=== PATIENT | female | born 1950 | race Caucasian/White ===

== ENCOUNTER 2018-09-23 10:25 | Day surgery (SDC) | payer OTHER ==
[~2018-09-23 10:25] MED LIST: CHONDR SU A NA/HYALUR INTRAOC KIT (SURGICARE) ONE; EPINEPHRINE INJ/PF 1 MG/1 ML AMPULE ONE; KETOROLAC TROMETHAMINE 0.45% 4 DROP/0.4 ML DROPERETTE OS PRN; LIDOCAINE 1%/PHENYLEPHRINE 1.5% 1 ML VIAL ONE
[2018-09-23] MEDS: TETRACAINE HCL 0.5% OPH SOLN 4 ML OS PRN ×3 (10:57→11:26)
[2018-09-23] MEDS: TROPICAMIDE 1% OPH SOLN 3 ML OS PRN ×3 (10:58→11:19)
[2018-09-23] MEDS: CYCLOPENTOLATE 0.2%/PHENYLEPHRINE 1% OPH SOLN 2 ML OS PRN ×3 (10:58→11:19)
[2018-09-23] MEDS ORDERED: LIDOCAINE 2% INJ-PF (20 MG/ML) 10 ML AMPUL ONE (11:32)
[2018-09-23] MEDS ORDERED: MIDAZOLAM 2 MG/2 ML INJ ONE (11:32)
[2018-09-23] MEDS: TOBRAMYCIN SULFATE/DEXAMETH OPH SUSP 2.5 ML ONE ×2 (11:51)
[2018-09-23] MEDS: DORZOLAMIDE HCL 2%/TIMOLOL MALEAT 0.5% OPH SOLN 10 ML OS PRN ×2 (11:51)
--- NOTE | 2018-09-23 21:45 | [facility] OPERATIVE REPORT E ---
[facility] Operative Report NAME: ANNIE SEGOVIA AGE: 68Y DATE OF SURGERY: 09/23/2018 ROOM: PREOPERATIVE DIAGNOSIS: CATARACT, LEFT EYE. POSTOPERATIVE DIAGNOSIS: CATARACT, LEFT EYE. OPERATION: Cataract extraction with insertion of an IOL of the left eye. SURGEON: OKSANA LINDO M.D. ANESTHESIA: Topical. PROCEDURE: After obtaining appropriate consent, the patient's left eye was prepped and draped in sterile fashion as well as the surgeon in a sterile manner and cataract surgery was started. First a paracentesis blade was used to make a side-port incision. Viscoelastic was used to inflate the anterior chamber. Next a 2.4 mm incision was made with a 2.4 mm blade, clear corneal temporally. A continuous capsulorrhexis was made using a cystotome and Utrata forceps. Following this hydrodissection was carried out to make the lens fully loose and mobile and it was rotated 90 degrees. Following this, a tqascn-otn-tumzbdm technique was used to phacoemulsify the lens with a CDE of 8.64. The remaining cortex was removed with irrigation/aspiration. Provisc was instilled into the capsular bag to inflate the bag. A SN60WF, 21.0 diopter lens was placed. The remaining viscoelastic material was removed with irrigation/aspiration. Following this, the incision was found to be watertight. Besivance was instilled into the eye and a protective shield was placed over the eye. The patient returned to the postoperative recovery in stable condition. DICTATING PHYSICIAN: OKSANA LINDO M.D. [id number] [id number] PHY#: [id number] ID: [id number] JOB#: [id number] ACCT: [id number] cc:OKSANA LINDO M.D. >
--- NOTE | 2018-09-23 21:50 | [facility] DISCHARGE SUMMARY E ---
[facility] Discharge Summary NAME: ANNIE SEGOVIA AGE: 68Y ADMITTED: 09/23/2018 DISCHARGED: 09/23/2018 HOSPITAL COURSE: This is a 68-year-old female who underwent cataract extraction of the left eye. DIAGNOSIS: CATARACT, LEFT EYE. She underwent surgery because she was having trouble seeing the road signs and television. DISCHARGE INSTRUCTIONS: She should be on a regular diet. No bending at her waist, no heavy lifting. She should use her Polytrim, Prolensa, and Durezol at 3 p.m. and 8 p.m. and sleep with a rigid shield. I will see her for her 1 day postoperative tomorrow. DICTATING PHYSICIAN: OKSANA LINDO M.D. [id number] [id number] Y#: [id number] ID: [id number] JOB#: [id number] ACCT: [id number] cc:OKSANA LINDO M.D. >
== END 2018-09-23 12:30 | disposition home or self-care (01) ==
LOC: SC 10:25
PROVIDERS: ATTEND Internal Medicine
DX: H25.13 Age-related nuclear cataract, bilateral (principal); H43.813 Vitreous degeneration, bilateral; H04.123 Dry eye syndrome of bilateral lacrimal glands; Z85.3 Personal history of malignant neoplasm of breast
CPT/HCPCS: 66984; J2250; J3490 ×4; J0171; J2370; 142; V2632

== ENCOUNTER 2018-10-07 06:55 | Day surgery (SDC) | payer OTHER ==
[~2018-10-07 06:55] MED LIST changes: +BESIFLOXACIN HCL 0.6% OPH SUSP 5 ML BOTTLE OD PRN; -CHONDR SU A NA/HYALUR INTRAOC KIT (SURGICARE) ONE; -EPINEPHRINE INJ/PF 1 MG/1 ML AMPULE ONE; +KETOROLAC TROMETHAMINE 0.45% 4 DROP/0.4 ML DROPERETTE OD PRN; -KETOROLAC TROMETHAMINE 0.45% 4 DROP/0.4 ML DROPERETTE OS PRN; -LIDOCAINE 1%/PHENYLEPHRINE 1.5% 1 ML VIAL ONE
[2018-10-07] MEDS: TROPICAMIDE 1% OPH SOLN 3 ML OD PRN ×3 (07:37→07:57)
[2018-10-07] MEDS: TETRACAINE HCL 0.5% OPH SOLN 4 ML OD PRN ×4 (07:37→08:07)
[2018-10-07] MEDS: CYCLOPENTOLATE 0.2%/PHENYLEPHRINE 1% OPH SOLN 2 ML OD PRN ×3 (07:37→07:57)
[2018-10-07] MEDS ORDERED: MIDAZOLAM 2 MG/2 ML INJ ONE (08:12)
[2018-10-07] MEDS: EPINEPHRINE INJ/PF 1 MG/1 ML AMPULE ONE ×2 (08:17)
[2018-10-07] MEDS: LIDOCAINE 1%/PHENYLEPHRINE 1.5% 1 ML VIAL ONE ×2 (08:17)
[2018-10-07] MEDS: CHONDR SU A NA/HYALUR INTRAOC KIT (SURGICARE) ONE ×2 (08:17)
[2018-10-07] MEDS: TOBRAMYCIN SULFATE/DEXAMETH OPH SUSP 2.5 ML ONE ×2 (08:25)
[2018-10-07] MEDS: DORZOLAMIDE HCL 2%/TIMOLOL MALEAT 0.5% OPH SOLN 10 ML OD PRN ×2 (08:25)
--- NOTE | 2018-10-08 09:45 | DISCHARGE SUMMARY E ---
Discharge Summary NAME: ANNIE SEGOVIA : 1950 AGE: 68Y ADMITTED: 10/07/2018 DISCHARGED: HOSPITAL COURSE: This is a 68-year-old female who underwent cataract extraction of the right eye. DIAGNOSIS: CATARACT, RIGHT EYE. She underwent surgery because she was having difficulty driving secondary to glare from headlights. DISCHARGE INSTRUCTIONS: She should be on a regular diet. No bending at her waist, no heavy lifting. She should use her Polytrim, Prolensa, and Durezol at 3 p.m. and 8 p.m. and sleep with a rigid shield. I will see her for her 1-day postoperative tomorrow. DICTATING PHYSICIAN: OKSANA LINDO M.D. [id number] PHY#: [id number] ID: [id number] JOB#: [id number] ACCT: [id number] cc:OKSANA LINDO M.D. > MTDD
--- NOTE | 2018-10-08 10:44 | [facility] OPERATIVE REPORT E ---
[facility] Operative Report NAME: ANNIE SEGOVIA AGE: 68Y DATE OF SURGERY: 10/07/2018 ROOM: PREOPERATIVE DIAGNOSIS: CATARACT, RIGHT EYE. POSTOPERATIVE DIAGNOSIS: CATARACT, RIGHT EYE. OPERATION: Cataract extraction with insertion of an IOL of the right eye. SURGEON: OKSANA LINDO M.D. ANESTHESIA: Topical. PROCEDURE: After obtaining appropriate consent, the patient's right eye was prepped and draped in sterile fashion as well as the surgeon in a sterile manner and cataract surgery was started. First a paracentesis blade was used to make a side-port incision. Viscoelastic was used to inflate the anterior chamber. Next a 2.4 mm incision was made with a 2.4 mm blade, clear corneal temporally. A continuous capsulorrhexis was made using a cystotome and Utrata forceps. Following this hydrodissection was carried out to make the lens fully loose and mobile and it was rotated 90 degrees. Following this, a oyhahw-stg-nldqvah technique was used to phacoemulsify the lens with a CDE of 10.47. The remaining cortex was removed with irrigation/aspiration. Provisc was instilled into the capsular bag to inflate the bag. A SN60WF, 21.5 diopter lens was placed. The remaining viscoelastic material was removed with irrigation/aspiration. Following this, the incision was found to be watertight. Besivance was instilled into the eye and a protective shield was placed over the eye. The patient returned to the postoperative recovery in stable condition. DICTATING PHYSICIAN: OKSANA LINDO M.D. [id number] [id number] PHY#: [id number] ID: [id number] JOB#: [id number] ACCT: [id number] cc:OKSANA LINDO M.D. >
== END 2018-10-07 09:03 | disposition home or self-care (01) ==
LOC: SC 06:55
PROVIDERS: ATTEND Internal Medicine
DX: H25.11 Age-related nuclear cataract, right eye (principal); Z96.1 Presence of intraocular lens
CPT/HCPCS: 66984; V2632; J2250; J3490 ×3; J0171; J2370; 142